=== PATIENT | female | born 1945 | race Caucasian/White ===

== ENCOUNTER 2016-12-30 06:34 | Inpatient (IN) | payer MEDICARE, OTHER ==
[~2016-12-30] VITALS: Ht 162.6 cm; Wt 53.1 kg
[2016-12-30] VITALS (17 sets, daily range): BP systolic 120–161; BP diastolic 68–98; BMI 18.0
[~2016-12-30 06:34] MED LIST: BAYER CHEWABLE81 MG PO; BENADRYL25 MG PO; FISH OIL 1,0001 CA1 PO; FISH OIL 500 MG1 CAP PO; LISINOPRIL2.5 MG; LOPRESSOR25 MG PO; NICODERM C1 PATCH .1 TD
[2016-12-30 06:57] LABS: BASOPHILS 0.2 % (0.0-2.0); EOSINOPHILS 1.6 % (0-7); HEMATOCRIT 40.3 % (36.0-48.0); HEMOGLOBIN 13.5 g/dL (12-16); IMMATURE GRANULOCYTES 0.3 % (0-5); LYMPHOCYTES 24.9 % (15-50); MCH 30.9 pg (26.0-34.0); MCHC 33.5 g/dL (31.0-37.0); MCV 92.2 fL (80.0-100.0); MEAN PLATELET VOLUME 10.1 fL (7.4-10.4); MONOCYTES 2.9 % (2-11); NEUTROPHILS 70.1 % (40-80); PLATELET COUNT 206 10x3/uL (130-400); RBC 4.37 10x6/uL (4.00-5.40); WBC 17.1 10x3/uL (4.8-10.8)
[2016-12-30 07:19] LABS: ALBUMIN 3.8 g/dL (3.4-5.0); ANION GAP 16.9 mmol/L (8-16); BILIRUBIN - TOTAL 0.32 mg/dL (0.2-1.3); CARBON DIOXIDE 22.1 mmol/L (21.0-32.0); CREATININE - SERUM 2.2 mg/dL (0.6-1.3); PROTEIN - SERUM 7.6 g/dL (6.4-8.2)
[2016-12-30 07:35] LABS: TROPONIN-I 0.675 ng/mL (0.000-0.060)
[2016-12-30 07:49] LABS: APPEARANCE CLEAR (CLEAR); BILIRUBIN NEGATIVE (NEGATIVE); COLOR YELLOW (YELLOW); GLUCOSE NEGATIVE (NEGATIVE); KETONE NEGATIVE (NEGATIVE); LEUKOCYTE ESTERASE NEGATIVE (NEGATIVE); NITRITE NEGATIVE (NEGATIVE); PROTEIN NEGATIVE (NEGATIVE); UROBILINOGEN NORMAL (NORMAL)
[2016-12-30 07:51] LABS: APTT 32.7 SECONDS (22.8-39.4); INR 1.01 (0.85-1.17); PROTIME 13.1 SECONDS (11.6-15.0)
[2016-12-30 07:52] LABS: D-DIMER-QUANTITATIVE 1.82 ug/mLFEU (0.20-0.54)
[2016-12-30 08:05] LABS: CKMB 1.9 U/L (0.0-3.6); LIPASE 151 U/L (73-393); PRO BNP 19036 pg/mL (0-125)
[2016-12-30 08:07] LABS: AMYLASE - SERUM 343 U/L (25-115)
--- NOTE | 2016-12-30 10:33 | NUR ---
Is the patient Alert and Oriented? No 0 * How many steps to enter\exit or inside your home? 5-7 0 * PCP DR. CISNEROS 0 * Pharmacy [facility] * Preadmission Environment Home with Family 0 * ADLs Independent 0 * Equipment Bedside Commode Cane Rolling Walker Wheelchair 0 * List name and contact numbers for known caregivers / representatives who currently or will assist patient after discharge: DAUGHTER: FELIX [phone] DAUGHTER: LAUREN [phone] * Community resources currently utilized None 0 * Additional services required to return to the preadmission environment? No 0 * Can the patient safely return to the preadmission environment? Yes 0 * Has this patient been hospitalized within the prior 30 days at any hospital? No PATIENT IS ON THE VENT AND UNABLE TO ANSWER QUESTIONS. I SPOKE WITH HER DAUGHTER, FELIX. SHE STATES HER MOTHER LIVES AT HOME WITH HER. SHE STATES SHE WAS INDEPENDENT IN HER ADL'S. FELIX STATES HER MOTHER'S PCP IS DR. CISNEROS. SHE GETS HER MEDS FROM [facility] AT [facility]. SHE HAS A WALKER, CANE, W/C AND BSC. HER DAUGHTER STATES PATIENT HAD HOME HEALTH SEVEN YRS AGO, BUT THEY DO NOT RECALL THE NAME OF THE AGENCY. THERE ARE 5-7 STEPS WITH A RAIL TO ENTER HER HOME. DISCHARGE NEEDS ARE UNDETERMINED AT THIS TIME.
[2016-12-30 12:21] LABS: TROPONIN-I 0.752 ng/mL (0.000-0.060)
--- NOTE | 2016-12-30 12:57 | NUR ---
0900 PT ARRIVED ON UNIT. INTUBATED AND ON VENTILATOR, SETTINGS IN ASSESSMENT. PT MOVING AROUND AND WITHDRAWING TO PAIN AT THIS TIME. SEDATION VACATION PERFORMED AND BP INCREASED. WILL TAPER SEDATION NEEDED. NORMAL SINUS ON MONITOR AT THIS TIME. RESTRAINTS SECURED AND DOCUMENTED IN FLOWSHEET. FAMILY AT BEDSIDE.
--- NOTE | 2016-12-30 13:01 | NUR ---
1100 PROPOFOL INCREASED AND BP IS NOW STABLE. PT IS NO LONGER MOVING IN BED. WHEN MOVEMENT IS NOTED IT APPEARS TO BE PURPOSEFUL. WILL CONTINUE TO MONITOR AND COMPLETE MED REC WHEN FAMILY COMES AT VISITATION.
--- NOTE | 2016-12-30 13:03 | NUR ---
1300 PT REAMINS STABLE AT THIS TIME WITH NO CHANGES FROM PREVIOUS ASSESSMENT. WILL CONTINUE TO MONITOR. VITAL SIGNS STABLE
[2016-12-30] MEDS ORDERED: ROCALTROL0.5 MCG PO (15:22)
[2016-12-30] MEDS ORDERED: NORVASC5 MG PO (15:22)
[2016-12-30] MEDS ORDERED: METOPROLOL TART50 MG PO (15:23)
[2016-12-30] MEDS ORDERED: ZOCOR20 MG PO (15:24)
--- NOTE | 2016-12-30 15:37 | NUR ---
1500 FAMILY AT BEDSIDE AND UPDATE GIVEN ON PT STATUS. MED REC COMPLETED. PT FAMILY VERBALIZED UNDERSTANDING. PT REPOSITIONED IN BED. VITAL SIGNS STABLE.
--- NOTE | 2016-12-30 18:06 | NUR ---
1700 PT STATUS REMAINS UNCHANGED AT THIS TIME. ORAL CARE PERFORMED AND REPOSITIONED IN BED. WILL CONTINE TO MONITOR
--- NOTE | 2016-12-30 19:00 | NUR ---
REPORT REC'D, PATIENT CARE ASSUMED. ASSESSMENT COMPLETED. SEE FLOW SHEETS FOR ALL FINDINGS. PT SEDATED ON VENT, AROUSES WITH PAIN. SR ON CM WITH HR TO 98. LUNG SOUNDS DIMINISHED TO BILAT LL. OGT TO LIWS IN PLACE. PLACEMENT VERIFIED BY AIR BOLUS WITHOUT DIFFICULTY. LEFT AC PIV INTACT, CLEAN AND DRY INFUSING NS AT 75ML/HR. LUCERO INTACT TO GRAVITY. PPP. SCD REMOVED FOR SKIN INTEGRITY.HOB UP REPOSITIONED FOR COMFORT. SIDE RAILS UP. WILL CONT TO MONITOR.
--- NOTE | 2016-12-30 21:00 | NUR ---
FAMILY AT BEDSIDE VISITING. UPDATED AND QUESTIONS ANSWERED.
--- NOTE | 2016-12-30 22:45 | NUR ---
KASSY BUCHANAN CALLED REGARDING PT'S CONDITION AND 30CC IN 4HR OUTPUT NOTED. ORDER RECEIVED.
--- NOTE | 2016-12-30 23:00 | NUR ---
DR ZEE CALLED WITH CONCERNED OF PT'S OUTPUT. ORDER REC'D FOR 40MG LASIX IV.
[2016-12-31] VITALS (26 sets, daily range): BP systolic 105–154; BP diastolic 64–95; Ht 162.6 cm; Wt 53.1 kg
--- NOTE | 2016-12-31 | NUR ---
REMOVED PT'S 1 YELLOW ANKLET, 3 YELLOW RINGS AND 1 YELLOW EARRING FROM RIGHT EAR. PUT ON BAG IN PT'S CASSETTE. WILL GIVE TO DAUGHTER IN AM.
--- NOTE | 2016-12-31 00:50 | NUR ---
BLADER SCAN DONE. 9ML NOTED. WILL CALL DR ZEE TO NOTIFIED.
--- NOTE | 2016-12-31 01:00 | NUR ---
DR ZEE CALLED FOR PT'S CONDITION AND REGARDING OUTPUT, NO ORDER REC'D AT THIS TIME. CONT TO MONITOR OP TILL MORNING.
--- NOTE | 2016-12-31 03:00 | NUR ---
REASSESSMENT COMPLETED PER FLOW SHEETS. PT SEDATED ON VENT AROUSES WITH STIMULATION, NO ACUTE CHANGES FROM PREVIOUSE. VSS. CONT TO MONITOR.
--- NOTE | 2016-12-31 04:00 | NUR ---
REPOSITIONED FOR COMFORT. MOUTH CARE DONE PER VAP. VSS.
[2016-12-31 05:14] LABS: BASOPHILS 0.1 % (0.0-2.0); EOSINOPHILS 0 % (0-7); HEMATOCRIT 35.6 % (36.0-48.0); HEMOGLOBIN 12.1 g/dL (12-16); IMMATURE GRANULOCYTES 0.3 % (0-5); LYMPHOCYTES 4.9 % (15-50); MCH 30.9 pg (26.0-34.0); MEAN PLATELET VOLUME 10.6 fL (7.4-10.4); MONOCYTES 4.7 % (2-11); PLATELET COUNT 173 10x3/uL (130-400); RBC 3.91 10x6/uL (4.00-5.40); RDW 13.2 % (11.5-14.5); WBC 14.4 10x3/uL (4.8-10.8)
--- NOTE | 2016-12-31 05:20 | NUR ---
PT'S SISTER QIAN FROM [place] CALLED VIA PHONE. UPDATED AND QUESTIONS ANSWERED.
[2016-12-31 05:40] LABS: ALBUMIN 3.2 g/dL (3.4-5.0); BILIRUBIN - TOTAL 0.37 mg/dL (0.2-1.3); CALCIUM 7.6 mg/dL (8.5-10.1); MAGNESIUM - SERUM 1.5 mg/dL (1.8-2.4); PHOSPHOROUS 4.4 mg/dL (2.5-4.9); POTASSIUM - SERUM 4.7 mmol/L (3.5-5.1); PROTEIN - SERUM 6.5 g/dL (6.4-8.2); THYROID STIMULATING HORMONE 1.42 uIU/mL (0.36-3.74)
[2016-12-31 05:45] LABS: ANION GAP 21.2 mmol/L (8-16); CARBON DIOXIDE 15.5 mmol/L (21.0-32.0); CREATININE - SERUM 3.8 mg/dL (0.6-1.3); TROPONIN-I 0.875 ng/mL (0.000-0.060)
--- NOTE | 2016-12-31 07:00 | NUR ---
REPORT RECEIVED, PATIENT IN SEMIFOWLERS POSITION WITH EYES CLOSED. VENT IN PLACE. ASSESSMENT DONE AT THIS TIME. NO VISUAL CUES OF DISTRESS NOTED.
--- NOTE | 2016-12-31 08:22 | NUR ---
SPOKE WITH DR DAUGHERTY AND HE STATED THAT THE WAS TOLD ABOUT THE CONSULT ON THIS PATIENT EVEN THOUGH IN REPORT I WAS TOLD HE HAD NOT BEEN NOTIFIED.
--- NOTE | 2016-12-31 09:20 | NUR ---
PATIENT HAD SOME JEWERLY THAT WAS REMOVED FROM HER ON PM SHIFT (ONE GOLD TONE WITH CLEAR STONE EARRING. THREE GOLD TONE RINGS. ONE GOLD TONE ROPE ANKLET). THESE ITEMS WERE GIVEN TO BRUCE, PATIENTS DAUGHTER AND CAREGIVER. SHE PLACED THEM IN HER POCKET AND LEFT WITH THEM AFTER VISITING HOURS.
--- NOTE | 2016-12-31 10:01 | NUR ---
DOBUTAMINE RESTARTED SECONDARY TO HR DROPPING BACK INTO THE 40'S.
[2016-12-31 11:05] LABS: UDS - AMPHET NEGATIVE QUAL (NEGATIVE); UDS - BARB NEGATIVE QUAL (NEGATIVE); UDS - BENZO POSITIVE QUAL (NEGATIVE); UDS - COCAINE NEGATIVE QUAL (NEGATIVE); UDS - METH NEGATIVE QUAL (NEGATIVE); UDS - OPIATE NEGATIVE QUAL (NEGATIVE); UDS - PCP NEGATIVE QUAL (NEGATIVE); UDS - THC NEGATIVE QUAL (NEGATIVE)
--- NOTE | 2016-12-31 12:19 | NUR ---
VASCULAR ACCESS NURSE NOT HERE TODAY TO PLACE A PICC LINE, ORDER RECEIVED FOR CENTRAL LINE. DR CHUN ON FOR SURGERY AND PAGED.
--- NOTE | 2016-12-31 12:30 | NUR ---
SPOKE WITH DR CHUN WHO STATED THAT HE WOULD BE HERE IN 10MINUTES TO DO THE CENTRAL LINE. SPOKE WITH DAUGHTER, BRUCE, AND VERBAL CONSENT WAS OBTAINED AND WITNESSED BY JANEY NIÑO. DR ZEE HERE AND SPOKE WITH THE DAUGHTER OVER THE PHONE AT THIS TIME. SHE STATED THAT SHE WOULD BE UP AT THE 1500 VISITING HOUR.
--- NOTE | 2016-12-31 12:59 | NUR ---
ASSISTED DR CHUN WITH PLACEMENT OF LEFT TRIPLE LUMEN CVL. X-RAY HERE NOW TO DO THE STAT CHEST X-RAY.
[2016-12-31 14:16] LABS: PROTEIN - URINE 24.3 mg/dL (0.0-11.9)
--- NOTE | 2016-12-31 15:23 | NUR ---
PATIENTS BROTHER, DAUGHERS X2 AND FRIEND OF THE FAMILY HERE. ALL QUESTIONS ANSWERED AND UPDATES GIVEN. FAMILY STATED THEY APPRECIATED ALL WE ARE DOING FOR HER. THEY WILL RETURN AT 1800.
--- NOTE | 2016-12-31 16:18 | NUR ---
NEPRO @ 20 STARTED PER ORDERS BY DAVID ALLEN RN.
--- NOTE | 2016-12-31 19:40 | NUR ---
REC'D TO CARE, ASSESSMENT PER FLOWSHEET. PT ON VENT VIA OETT - SEE FLOWSHEET. NO SIGN OF DISTRESS. IVF INFUSING TO L DLSC, BLOODY DRAINAGE NOTED - STERILE DSG CHANGE DONE. PT REPOSITIONED UP IN BED TO R SIDE. ALARMS ON.
--- NOTE | 2016-12-31 21:20 | NUR ---
NO VISITORS. SEDATION VACATION STARTED.
--- NOTE | 2016-12-31 22:00 | NUR ---
PT COUGHING AGAINST VENT, PULLING AGAINST RESTRAINTS. RR 25. PT WILL NOT FOLLOW COMMANDS BUT MOVES ALL EXTR. RESUMED DIPRIVAN GTT AT 50 MCG/KG/MIN.
--- NOTE | 2016-12-31 22:30 | NUR ---
REASSESSMENT PER FLOWSHEET, RESTING QUIETLY, NO SIGN OF DISTRESS.
--- NOTE | 2016-12-31 23:05 | NUR ---
CM - UCAF RATE 160-180. DR CHENEY.
--- NOTE | 2016-12-31 23:16 | NUR ---
DR. MCGHEE NOTIFIED OF [facility] - NEW ORDER REC'D.
--- NOTE | 2016-12-31 23:23 | NUR ---
CARDIZEM BOLUS GIVEN.
--- NOTE | 2016-12-31 23:27 | NUR ---
REASSESSMENT PER FLOWSHEET. CM - UCAF RATE 130-150S. NO SIGN OF DISTRESS. CONT CLOSE MONITORING, WILL INITIATE CARDIZEM GTT PER MD ORDER IF PT DOES NOT CONVERT TO NSR.
--- NOTE | 2016-12-31 23:55 | NUR ---
INITIATED CARDIZEM GTT PER MD ORDER AT 10MG/HR
[2017-01-01] VITALS (24 sets, daily range): BP systolic 95–139; BP diastolic 63–97
--- NOTE | 2017-01-01 02:20 | NUR ---
CONVERTED TO SR. HR 90S.
--- NOTE | 2017-01-01 02:37 | CN ---
PATIENT NAME:JOHN AGUDELO MEDICAL RECORD: [id number] : 41 LOCATION:[facility] ADMIT DATE: 12/30/16 ACCOUNT: [id number] CONSULTING PHYSICIAN: BRAXTON CHUN MD REFERRING PHYSICIAN: GIOVANNA SAUL MD DATE OF CONSULTATION: 12/31/2016 SURGEON: Braxton Chun MD. PREOPERATIVE DIAGNOSES: 1. Respiratory failure. 2. Congestive heart failure. 3. Acute kidney failure. 4. Peripheral venous access insufficiency. POSTOPERATIVE DIAGNOSES: 1. Respiratory failure. 2. Congestive heart failure. 3. Acute kidney failure. 4. Peripheral venous access insufficiency. PROCEDURE PERFORMED: Insertion of left subclavian central venous triple lumen catheter. ANESTHESIA: Local. COMPLICATIONS: None. SPECIMENS: None. ESTIMATED BLOOD LOSS: 5 cc. PROCEDURE IN DETAIL: After consent was obtained, the patient was placed in the supine position on her ICU bed. The bed was placed in Trendelenburg position. A timeout was taken to confirm the correct patient and procedure. The left chest wall and neck were prepped and draped in the typical sterile fashion. A 5 cc of local anesthetic were injected in the left chest wall. Left subclavian vein was cannulated on the first pass. A guidewire was placed. The needle was removed. A stab incision was made with 11-blade scalpel. The dilator was passed over the wire in a standard Seldinger fashion. The catheter was then advanced over the wire in a standard Seldinger fashion. A Biopatch was placed. It was secured to skin using 2-0 silk suture and a sterile Tegaderm dressing. All 3 ports were aspirated and flushed. At the end of procedure, all needle and instrument counts were correct. No complications occurred. Immediate postoperative chest x-ray was performed. TRANSINT:[id number] Voice Confirmation ID: [id number] DOCUMENT ID: [id number] CONSULT REPORT [id number] JOHN AGUDELO BRAXTON CHUN MD at 0237 CC: [id number] DICTATION DATE: 12/31/16 1307 CUTTER V GROOVE: 12/31/16 2159 [place] [address]
--- NOTE | 2017-01-01 02:37 | CN ---
PATIENT NAME:JOHN AGUDELO MEDICAL RECORD: [id number] : 41 LOCATION:[facility].2310 ADMIT DATE: 12/30/16 ACCOUNT: [id number] CONSULTING PHYSICIAN: BRAXTON CHUN MD REFERRING PHYSICIAN: GIOVANNA SAUL MD DATE OF CONSULTATION: 12/31/2016 HISTORY OF PRESENT ILLNESS: This is a 71-year-old female, who was admitted to the ICU for heart palpitations and respiratory failure. She was intubated and transferred to the ICU. All history was obtained through chart review and discussion with the nurse. The patient is critically ill without adequate IV access, on the ventilator. The patient was delivered by EMS earlier today. PAST MEDICAL HISTORY: Includes arthralgia, hypertension, hyperlipidemia, neuropathy, stage IV renal disease, as well as history of stroke, history of TIA, peripheral vascular disease, coronary artery disease, carotid stenosis. PAST SURGICAL HISTORY: Hysterectomy, removal of the right ____, left wrist. She has bilateral iliac stents. ALLERGIES: LISINOPRIL. MEDICATIONS: Included aspirin, fish oil, Nicoderm, Benadryl, metoprolol. SOCIAL HISTORY: Per report, no history of alcohol, smoking unknown. FAMILY HISTORY: Unobtainable. REVIEW OF SYSTEMS: A 12-point review of systems unobtainable secondary to the patient's medical condition. She is currently intubated and sedated. PHYSICAL EXAMINATION: VITAL SIGNS: Temperature 99, heart rate 84, respiratory rate 20, blood pressure 130/44, satting 98% on 40% on the vent. GENERAL: Cachectic elderly female in severe distress. EYES: Pupils are equal, round and reactive. EARS, NOSE AND THROAT: She has normal dentition. CARDIOVASCULAR: She has normal sinus rhythm. LUNGS: Decreased breath sounds bilaterally. She has got coarse rales bilaterally. ABDOMEN: Soft, nontender, and nondistended. SKIN: Warm and dry with normal turgor. EXTREMITIES: She has got some mild lower extremity edema. NEUROLOGIC: She has a GCS of 70. LABORATORY DATA: Reviewed. Please see electronic medical record for full list of labs. Chest x-ray reviewed, which shows interstitial pulmonary edema. IMPRESSION: A 71-year-old female with acute respiratory failure and peripheral IV access insufficiency, [id number] renal failure, congestive heart failure exacerbation. Pulmonary critical care is in consult and is currently managing the patient's ventilator. The patient is on IV diuresis, IV antibiotics and IV steroids as well as IV sedation. Continue critical care current management per primary care and pulmonary critical care. Consent obtained for insertion of a central venous line. CONSULT REPORT [id number] JOHN AGUDELO TRANSPATRICIA:[id number] Voice Confirmation ID: [id number] DOCUMENT ID: [id number] BRAXTON CHUN MD at 0237 CC: [id number] DICTATION DATE: 12/31/16 1307 ELECTRIC SWITCH TESTER: 12/31/16 2158 ADM IN [place] [id number] [place] [id number]
--- NOTE | 2017-01-01 03:37 | NUR ---
PCXR DONE. REASSESSMENT PER FLOWSHEET. CM - SR. STILL SMALL AMT BLEEDING FROM CVL. PRESSURE HELD AND DSG CHANGED.
[2017-01-01 05:01] LABS: BASOPHILS 0 % (0.0-2.0); EOSINOPHILS 0 % (0-7); HEMATOCRIT 33.5 % (36.0-48.0); HEMOGLOBIN 11.4 g/dL (12-16); IMMATURE GRANULOCYTES 0.3 % (0-5); LYMPHOCYTES 5.4 % (15-50); MCH 30.1 pg (26.0-34.0); MEAN PLATELET VOLUME 10.5 fL (7.4-10.4); MONOCYTES 4.5 % (2-11); NEUTROPHILS 89.8 % (40-80); PLATELET COUNT 157 10x3/uL (130-400); RBC 3.79 10x6/uL (4.00-5.40); RDW 13.1 % (11.5-14.5); WBC 14.3 10x3/uL (4.8-10.8)
[2017-01-01 05:03] LABS: MCV 88.4 fL (80.0-100.0)
[2017-01-01 05:28] LABS: ALBUMIN 2.7 g/dL (3.4-5.0); BILIRUBIN - DIRECT 0.11 mg/dL (0.00-0.30); BILIRUBIN - INDIRECT 0.38 mg/dL (0.00-1.00); BILIRUBIN - TOTAL 0.49 mg/dL (0.2-1.3); CREATININE - SERUM 4.5 mg/dL (0.6-1.3); MAGNESIUM - SERUM 1.4 mg/dL (1.8-2.4); PHOSPHOROUS 4.7 mg/dL (2.5-4.9); PROTEIN - SERUM 6.2 g/dL (6.4-8.2)
[2017-01-01 05:36] LABS: ANION GAP 16.1 mmol/L (8-16); CALCIUM 6.8 mg/dL (8.5-10.1); CARBON DIOXIDE 24.6 mmol/L (21.0-32.0); POTASSIUM - SERUM 3.7 mmol/L (3.5-5.1)
--- NOTE | 2017-01-01 05:52 | NUR ---
COMPLETE BATH AND LINEN CHANGE DONE. RAOUL-CARE AND LOTION TO DRY SKIN. CVL STILL WITH SMALL AMT BLEEDING - SANDBAG APPLIED.
--- NOTE | 2017-01-01 11:00 | NUR ---
NO CHANGE NOTED
--- NOTE | 2017-01-01 15:00 | NUR ---
NO CHANGE NOTED
--- NOTE | 2017-01-01 19:20 | NUR ---
SHIFT ASSESSMENT COMPLETED. SEE ASSESSMENT FLOWSHEET. ORAL CARE COMPLETED. <5ML OF GASTRIC RESIDUAL NOTED FROM OG TUBE. OG WITH NEPRO INFUSING @ 35ML/HR. LEFT SC TRIPLE LUMEN CVL WITH NS @ 5ML/HR +IVPB; CARDIZEM @ 10MG/HR; 1/2NS W/ 75MEQ BICARB @ 50ML/HR. DIPRIVAN TO LEFT HAND 18G PIV @ 60, DECREASED TO 55MCG/KG/MIN. OPENS EYES SLIGHTLY TO STIMULATION. WITHDRAWS FROM PAIN. LEFT ARM SWELLING NOTED. ELEVATED ONTO PILLOWS. LUCERO TO GRAVITY DRAINING CLEAR, SLIGHTLY GREENISH COLORED URINE. SCD'S ON TO LE'S BILATERALLY. HEELS ELEVATED ONTO PILLOWS. WILL MONITOR.
--- NOTE | 2017-01-01 20:37 | NUR ---
2100 MEDS GIVEN. FSBS ASSESSED. SUGAR-157. WILL MONITOR.
--- NOTE | 2017-01-01 23:54 | NUR ---
SBP IN THE 90'S. HR IN THE MID 60'S-SINUS RHYTHM. DECREASED CARDIZEM TO 5MG/HR. WILL MONITOR.
[2017-01-02] VITALS (35 sets, daily range): BP systolic 99–198; BP diastolic 64–102
--- NOTE | 2017-01-02 00:45 | NUR ---
CARDIZEM TURNED OFF DUE TO HEART RATE MID 50'S. WILL MONITOR.
--- NOTE | 2017-01-02 01:10 | NUR ---
R.T. AT BEDSIDE DOING TREATMENT AND ORAL CARE. LEFT SC CVL OOZING SOME BLOODYD RAINAGE FROM DRESSING. SANDBAG PLACED ONTO CVL. WILL MONITOR.
--- NOTE | 2017-01-02 03:05 | NUR ---
REASSESSMENT COMPLETED. SEE ASSESSMENT FLOWSHEET. R.T. AT BEDSIDE DOING ABG. NO ACUTE CHANGES IN ASSESSMENT. SMALL OOZING OF SANGUINOUS DRAINAGE FROM LEFT SC CVL. SANDBAG IN PLACE. WILL GIVE BED BATH AFTER XRAY ETC.
--- NOTE | 2017-01-02 04:30 | NUR ---
LEFT SC CVL DRSG REMOVED AND OLD BLOODY DRAINAGE NOTED. STERILE DRSG CHANGED AND 4X4'S APPLIED TO SITE WITH 1/2 PACK 4X4'S AT THE SITE AFTER BIOPATCH. COMPLETE BED BATH AND LINEN CHANGE DONE. SMALL BROWN SEMI-SOLID BM REMOVED FROM PERINEAL AREA. LEFT AC PIV REMOVED. COUGHS AND MOVES ARMS UP TOWARDS OETT WHEN UNRESTRAINTED. ORAL CARE COMPLETED. TURNED AND REPOSITIONED TO RT SIDE. MULTIPLE PILLOWS USED TO ELEVATE HEELS AND ARMS OFF BED DUE TO SWELLING TO UE'S. PASSIVE ROM DONE. LE'S FLACCID WHEN RANGE OF MOTION COMPLETED. DIPRIVAN AT 40MCG/KG/MIN NOW. WILL CONTINUE TO MONITOR.
[2017-01-02 04:34] LABS: BASOPHILS 0 % (0.0-2.0); EOSINOPHILS 0 % (0-7); HEMATOCRIT 30.9 % (36.0-48.0); HEMOGLOBIN 10.6 g/dL (12-16); IMMATURE GRANULOCYTES 0.2 % (0-5); LYMPHOCYTES 6.7 % (15-50); MCH 30.1 pg (26.0-34.0); MCHC 34.3 g/dL (31.0-37.0); MCV 87.8 fL (80.0-100.0); MEAN PLATELET VOLUME 11.4 fL (7.4-10.4); MONOCYTES 2.9 % (2-11); NEUTROPHILS 90.2 % (40-80); PLATELET COUNT 150 10x3/uL (130-400); RBC 3.52 10x6/uL (4.00-5.40); RDW 13.3 % (11.5-14.5); WBC 13.2 10x3/uL (4.8-10.8)
[2017-01-02 04:57] LABS: INR 0.94 (0.85-1.17); PROTIME 12.4 SECONDS (11.6-15.0)
[2017-01-02 04:58] LABS: ALBUMIN 2.5 g/dL (3.4-5.0); ANION GAP 16.3 mmol/L (8-16); BILIRUBIN - TOTAL 0.4 mg/dL (0.2-1.3); CALCIUM 7.3 mg/dL (8.5-10.1); CARBON DIOXIDE 27.9 mmol/L (21.0-32.0); CREATININE - SERUM 4.5 mg/dL (0.6-1.3); MAGNESIUM - SERUM 1.7 mg/dL (1.8-2.4); PHOSPHOROUS 6.6 mg/dL (2.5-4.9); POTASSIUM - SERUM 4.2 mmol/L (3.5-5.1); PROTEIN - SERUM 5.7 g/dL (6.4-8.2)
--- NOTE | 2017-01-02 06:05 | NUR ---
MORE PAC'S AND IRREGULAR BEATS NOTED ON THE TUBE BENDER. CARDIZEM GTT TURNED BACK ON @ 5MG/HR.
--- NOTE | 2017-01-02 23:30 | NUR ---
REASSESSMENT PER FLOWSHEET, NO ACUTE CHANGES. VSS.
[2017-01-03] VITALS (27 sets, daily range): BP systolic 90–150; BP diastolic 52–98
--- NOTE | 2017-01-03 00:32 | NUR ---
REPOSITIONED UP IN BED.. ORAL CARE DONE. ROM DONE. CM - SR WITH PACS..
--- NOTE | 2017-01-03 02:00 | NUR ---
CM - SB HR 49 - CARDIZEM GTT TO 5MG/HR. WILL CONT CLOSE MONITORING.
--- NOTE | 2017-01-03 02:59 | NUR ---
REASSESSMENT PER FLOWSHEET, NO ACUTE CHANGES. NO SIGN OF DISTRESS. CM - NS RATE 57 WITH [facility] PAC. ALARMS ON .
[2017-01-03 04:34] LABS: BASOPHILS 0 % (0.0-2.0); EOSINOPHILS 0 % (0-7); HEMATOCRIT 30.4 % (36.0-48.0); HEMOGLOBIN 10.5 g/dL (12-16); IMMATURE GRANULOCYTES 0.4 % (0-5); LYMPHOCYTES 5.1 % (15-50); MCH 30.2 pg (26.0-34.0); MCHC 34.5 g/dL (31.0-37.0); MCV 87.4 fL (80.0-100.0); MONOCYTES 3.1 % (2-11); NEUTROPHILS 91.4 % (40-80); PLATELET COUNT 168 10x3/uL (130-400); RBC 3.48 10x6/uL (4.00-5.40); RDW 13.2 % (11.5-14.5); WBC 11.6 10x3/uL (4.8-10.8)
[2017-01-03 05:02] LABS: ALBUMIN 2.5 g/dL (3.4-5.0); ANION GAP 16.8 mmol/L (8-16); BILIRUBIN - TOTAL 0.3 mg/dL (0.2-1.3); CALCIUM 7.6 mg/dL (8.5-10.1); CARBON DIOXIDE 26.5 mmol/L (21.0-32.0); CREATININE - SERUM 4.8 mg/dL (0.6-1.3); MAGNESIUM - SERUM 1.9 mg/dL (1.8-2.4); POTASSIUM - SERUM 4.3 mmol/L (3.5-5.1); PROTEIN - SERUM 5.8 g/dL (6.4-8.2)
[2017-01-03 05:03] LABS: PHOSPHOROUS 8.4 mg/dL (2.5-4.9)
[2017-01-03 05:04] LABS: TROPONIN-I 1.871 ng/mL (0.000-0.060)
--- NOTE | 2017-01-03 07:00 | NUR ---
REPORT RECEIVED. PATIENT IN RIGHT POSITION, WAS CLEANED AND MOVED TO HER BACK. ASSESSMENT COMPLETED.
--- NOTE | 2017-01-03 09:32 | NUR ---
NUTRITION MONITORING & EVAL CHART REVIEWED, PT REMAINS ON VENT. NEPRO @ 35 CC/HR. DIPRIVAN @ 14 CC/HR. PROVIDING ~ 1882 KCAL, 68 GM PROTEIN PER DAY. RECOMMEND CHANGE TUBE FEEDS TO SUPLENA @ 30 CC/HR. RD FOLLOWING
--- NOTE | 2017-01-03 09:36 | NUR ---
AFTER SPEAK WITH CARLOS FILLING OPERATOR, SPOKE WITH DR ALEJANDRO. PATIENT ON HIGH PROTEIN FEEDING, THIS WILL CHANGE TO A LOWER PROTEIN PER NEW ORDERS. GI WILL BE CONSULTED SECONDARY TO ELEVATED AMYLASE.
--- NOTE | 2017-01-03 09:40 | NUR ---
DR ALEJANDRO AT BEDSIDE. HE REQUESTED THAT SEDATION BE TURNED OFF. HE CHANGED THE SIMV TO 8, TV TO 600 FROM 500, THE REST OF THE SETTINGS REMAINED THE SAME.
--- NOTE | 2017-01-03 09:53 | NUR ---
PATIENT IS AWAKE, SHE IS ABLE TO FOLLOW COMMANDS. SHE IS SQUEEZING HAND TO YES WITH QUESTIONS. THE WEANING PROCESS WAS EXPLAINED TO HER. WILL CONTINUE TO REEXPLAIN.
--- NOTE | 2017-01-03 09:59 | NUR ---
ATTEMPTED TO CALL CONSULT TO DR VO PER ORDERS. PER HIS OFFICE, THE PATIENT IS NOT AN EXISTING PATIENT AND DR MONGE IS THE ONCALL GI. WILL GET ORDER CHANGED.
--- NOTE | 2017-01-03 10:05 | NUR ---
CONSULT CALLED TO DR HUBER OFFICE.
--- NOTE | 2017-01-03 10:45 | NUR ---
PATIENTS VITALS ALARMING. HER HEART RATE WAS RANGING FROM 120'S TO 140'S. AT FIRST RHYTHM REMAINED SINUS RYTHUM, BUT THEN PROGRESSED INTO UNCONTROLLED A.FIB. CARDIZEM DRIP WAS INCREASED TO 10. TALKED WITH THE PATIENT WHO IS ALSO TRYING TO USE HER TONGUE TO MOVE THE ETT. IT WAS EXPLAINED THAT WE ARE WORKING ON GETTING THE TUBE OUT THAT SHE WOULD NEED TO CALM DOWN AND CONCENTRATE ON HER BREATHING AND TRY TO IGNORE THE TUBE. WILL CONTINUE TO WORK WITH THE PATIENT AND MONITOR HER.
--- NOTE | 2017-01-03 11:08 | NUR ---
PATIENT HAS CONVERTED BACK TO SINUS RHYTHM, SINUS TACH. WILL CONTINUE TO MONITOR.
--- NOTE | 2017-01-03 11:40 | NUR ---
SPOKE WITH PATIENTS DAUGHTER TO LET HER KNOW THAT THE PATIENT IS AWAKE AT THIS TIME AND THAT WE ARE WORKING TOWARDS WEANING HER AND GETTING HER OFF THE VENT. BRUCE WAS THANKFUL FOR THE INFORMATION AND STATED SHE WILL BE HERE AT 1500 VISITING HOUR WITH REST OF THE FAMILY.
--- NOTE | 2017-01-03 11:48 | NUR ---
PAGED DR CHUN TO TELL HIM ABOUT CONSULT, HE IS COVERING FOR DR MENEZES.
--- NOTE | 2017-01-03 12:49 | NUR ---
PATIENT TURNED TO CPAP ON THE VENT, FIO2 INCREASED TO 40% SECONDARY TO SATS HANGING 93-94%
--- NOTE | 2017-01-03 13:06 | NUR ---
PATIENT STARTED GASPING WHILE ON CPAP TRIALS. SHE WAS SWITCHED BACK SIMV AND SEDATIONS WAS RESTARTED AT 35 MCG. THIS IS LESS THAN SHE STARTED THIS AM. WILL KEEP SEDATION LOW POSSIBLE FOR THE PATIENT BUT RELAXED ENOUGH TO NOT FIGHT THE TUBE. WILL TRY CPAP TRIALS TOMORROW.
--- NOTE | 2017-01-03 15:54 | NUR ---
PATIENTS DAUGHTER ARE REFUSING TO SIGN CONSENTS FOR HEMOSPLIT HD CATH TO BE PLACED TODAY. HAVE EXPLAINED THIS TO DR CRUMP, DR CHUN, AND HAVE LEFT A MESSAGE FOR DR DAUGHERTY. WILL WAIT FOR HIM TO CALL BACK AND NOTIFY HIM. THE FAMILY STATED THEY WANTED TO THINK ABOUT THIS OVER NIGHT BECAUSE THE PATIENT HAS ALWAYS SAID THAT SHE DOES NOT WANT DIALYSIS AND THEY WANT TO OBEY HER WISHES, BUT THEN AGAIN THEY ARE A LITTLE SELFISH AND ARE NOT SURE IF THEY SHOULD BE OR NOT. THEY SAID THEY WOULD GIVE AN ANSWER IN THE MORNING.
--- NOTE | 2017-01-03 16:53 | NUR ---
JUST GOT OFF THE PHONE WITH PATIENTS DAUGHTER BRUCE. SHE STATED THAT THE FAMILY HAS TALKED AND THEY HAVE DECIDED TO GO AHEAD WITH THE PLACEMENT OF THE HEMOSPLIT. CONSENT WAS OBTAINED WITH SHIRA العراقي RN WITNESSING OVER THE PHONE. WILL NOTIFY ALL THE DOCTORS.
--- NOTE | 2017-01-03 17:09 | NUR ---
SPOKE WITH DR CHUN, EXPLAINED THAT THE DAUGHTERS HAVE DECIDED TO GO AHEAD WITH THE HEMOSPLIT. HE STATED THAT HE WOULD TAKE THE PATIENT NEXT. WILL LET RESPIRATORY KNOW.
--- NOTE | 2017-01-03 19:01 | NUR ---
ANESTHESIA HERE, PATIENT GETTING READY TO GO TO [facility] OR FOR HEMOSPLIT TO BE PLACED.
--- NOTE | 2017-01-03 20:10 | NUR ---
REC'D TO ROOM 2310 FROM OR. L CVL AND HEMOSPLIT CATHETER NOTED - DSG C/D/I. REMAINS ON MECH VENT VIA OETT - SEE FLOWSHEET. DIPRIVAN GTT - WILL TITRATE PER MD ORDER. CARDIZEM GTT AT 5MG/HR. CM - SR WITH PACS. ICU MONITORS/ALARMS ON. CONT B/L SOFT WRIST RESTRAINTS PER MD ORDER.
--- NOTE | 2017-01-03 21:20 | NUR ---
NO VISITORS. VSS. L CVL AND HEMOSPLIT SITES C/D/I.
--- NOTE | 2017-01-03 21:27 | NUR ---
DR. MONGE IN TO SEE PT. NEW ORDERS REC'D.
--- NOTE | 2017-01-03 23:30 | NUR ---
REASSESSMENT PER FLOWSHEET, NO ACUTE CHANGES. CM - SR WITH UCAF AT TIMES. NO SIGN OF DISTRESS. CONT ORAL CARE AND TURNING PER FLOWSHEET.
[2017-01-04] VITALS (24 sets, daily range): BP systolic 102–146; BP diastolic 64–93
--- NOTE | 2017-01-04 01:00 | NUR ---
CM - SR RATE 60-70S.
[2017-01-04 03:09] LABS: MYCOPLASMA PNEUMO IGG <100 U/mL (0-99)
--- NOTE | 2017-01-04 03:30 | NUR ---
REASSESSMENT PER FLOWSHEET, NO ACUTE CHANGES. CONT TO GO BACK AND FORTH BETWEEN SR AND UCAF - B/P STABLE. PCXR DONE.
--- NOTE | 2017-01-04 03:54 | NUR ---
RESIDUAL TF 410ML. HOLD TF PER MD ORDER.=
[2017-01-04 05:09] LABS: BASOPHILS 0 % (0.0-2.0); EOSINOPHILS 0 % (0-7); HEMATOCRIT 27.5 % (36.0-48.0); HEMOGLOBIN 9.3 g/dL (12-16); IMMATURE GRANULOCYTES 0.4 % (0-5); LYMPHOCYTES 5.7 % (15-50); MCH 29.9 pg (26.0-34.0); MCHC 33.8 g/dL (31.0-37.0); MCV 88.4 fL (80.0-100.0); MEAN PLATELET VOLUME 10.6 fL (7.4-10.4); MONOCYTES 4.7 % (2-11); NEUTROPHILS 89.2 % (40-80); PLATELET COUNT 160 10x3/uL (130-400); RBC 3.11 10x6/uL (4.00-5.40); RDW 13.3 % (11.5-14.5); WBC 10.4 10x3/uL (4.8-10.8)
[2017-01-04 05:45] LABS: ALBUMIN 2.5 g/dL (3.4-5.0); BILIRUBIN - TOTAL 0.47 mg/dL (0.2-1.3); CREATININE - SERUM 5.3 mg/dL (0.6-1.3); MAGNESIUM - SERUM 2.1 mg/dL (1.8-2.4); PHOSPHOROUS 8.7 mg/dL (2.5-4.9); POTASSIUM - SERUM 4.5 mmol/L (3.5-5.1); PROTEIN - SERUM 5.2 g/dL (6.4-8.2)
[2017-01-04 05:56] LABS: CALCIUM 6.9 mg/dL (8.5-10.1)
[2017-01-04 05:59] LABS: ANION GAP 15.8 mmol/L (8-16); CARBON DIOXIDE 27.7 mmol/L (21.0-32.0)
--- NOTE | 2017-01-04 07:00 | NUR ---
REPORT RECEIVED. PATIENT IN SEMIFOWLERS POSITION WITH EYES CLOSED. ASSESSMENT COMPLETED AT THIS TIME. SPOKE WITH DAUGHTER LAUREN ON THE PHONE, UPDATE GIVEN.
--- NOTE | 2017-01-04 08:23 | OP ---
PATIENT NAME: JOHN AGUDELO MEDICAL RECORD: [id number] :41 LOCATION:.[facility] D.2310 ADMISSION DATE:12/30/16 SURGEON: BRAXTON CHUN MD DATE OF OPERATION: 01/03/2017 SURGEON: Braxton Chun MD PREOPERATIVE DIAGNOSES: Acute renal failure, acute respiratory failure. POSTOPERATIVE DIAGNOSES: Acute renal failure, acute respiratory failure. PROCEDURE PERFORMED: 1. Ultrasound-guided left internal jugular HemoSplit catheter. 2. Immediate interpretation of fluoroscopy. ANESTHESIA: General. COMPLICATIONS: None. SPECIMENS: None. Case was clean. ESTIMATED BLOOD LOSS: 20 cc. OPERATIVE COURSE: After consent was obtained, the patient was taken to the operating room and placed in supine position on the table. Next, general anesthesia was continued via endotracheal tube. The left chest and neck were prepped and draped in typical sterile fashion. Local anesthetic was injected, but internal jugular vein was identified with the ultrasound probe and it was cannulated under ultrasound guidance. Once port was aspirated, the guidewire was placed through the needle in standard Seldinger fashion. The needle was removed. The tract was serially dilated over the wire in a standard Seldinger fashion. Skin incision was made with 11-blade scalpel. A second skin incision made over the left chest wall just below the clavicle. The dilator and breakaway sheath were passed over the wire in a standard Seldinger fashion. These were all done with fluoroscopic guidance. Next, the catheter was tunneled from the chest wall incision site to the needle stick site. The dilator and wire were removed. The catheter was advanced through the breakaway sheath to the atriocaval junction under fluoroscopic guidance. The breakaway sheath was removed. Skin incision was closed with a 3-0 Vicryl suture. HemoSplit catheter was secured to the skin using 2-0 nylon suture and sterile Tegaderm dressing. Next, both ports were aspirated. They were then flushed with 5000 units of heparin and 30 cc of saline. A sterile Tegaderm dressings were applied. The patient was transferred back to the ICU, intubated. Immediate post-procedure chest x-ray was performed. At the end of case, all needle and instrument counts were correct. TRANSINT:[id number] Voice Confirmation ID: [id number] DOCUMENT ID: [id number] OPERATIVE REPORT [id number] JOHN AGUDELO,BRAXTON Jenkins MD at 0823 CC: [id number] DICTATION DATE: 01/03/172004 BRICK SETTER OPERATOR: 01/04/17 [address] [facility] [address] [place] [id number]
--- NOTE | 2017-01-04 08:48 | NUR ---
PATIENT ON CPAP AND PER BRITNEY WITH RESPIRATORY, HER GASES ARE GOOD. SEDATION ON 5 MCG. PATIENT AWAKE AND ABLE TO FOLLOW COMMANDS.
--- NOTE | 2017-01-04 09:33 | NUR ---
PATIENT IS COMPLETELY OFF SEDATION. HEART RATE IS VARYING FROM 70'S TO 118. WILL CONTINUE TO MONITOR. AT THIS TIME SHE IS IN SINUS RYTHUM, SINUSTACH.
--- NOTE | 2017-01-04 09:46 | NUR ---
PATIENT EXTUBATED. SHE IS ON 4L N/C AND SATING 96-97%.
--- NOTE | 2017-01-04 09:46 | NUR ---
PATIENTS RESTRAINS OFF.
--- NOTE | 2017-01-04 09:50 | NUR ---
SPOKE WITH BRUCE ON THE PHONE AND LET HER KNOW THAT HER MOTHER HAS BEEN EXTUBATED. ALL QUESTIONS ANSWERED.
--- NOTE | 2017-01-04 10:59 | NUR ---
PATIENTS HEART RATE 128-136 UNCONTROLLED A.FIB. CARDIZEM DRIP INCREASED TO 10 ML/HR. WILL MONITOR.
--- NOTE | 2017-01-04 12:00 | NUR ---
TRIED PATIENT ON LIQUIDS. SHE DOES OK WITH ICE CHIPS, BUT STRUGGLES A BIT WITH LIQUIDS. EXPLAINED WE WOULD CONTINUE WITH THE ICE CHIPS AND TRY LIQUIDS AGAIN IN AN HOUR OR SO.
--- NOTE | 2017-01-04 14:14 | NUR ---
SECONDARY TO HR STAYING 128-150, DR GAMBINO PAGEMerna. ONE TIME ORDERED FOR DIGOXIN IV. WILL ADMINISTER AFTER ON HER EMAR.
--- NOTE | 2017-01-04 15:43 | NUR ---
SPOKE WITH DAUGHTER BRUCE ON THE PHONE. SHE ORIGINALLY STATED THAT SHE WOULD STAY AWAY TODAY AND LET THE PATIENT REST, BUT THE PATIENT IS WANTING TO SEE HER AND BECOMES TEARFUL SHE IS TALKING ABOUT IT. SHE STATED THAT SHE WOULD BE UP HERE FOR THE 1800 VISITATION.
--- NOTE | 2017-01-04 16:58 | NUR ---
FED PATIENT DINNER. SHE ATE AROUND 10% OF THE MEAL. SHE BECOMES SHORT OF BREATH WHILE EATING IF SHE DOES NOT TAKE BRAKES (SATS REAMIN 96-97%) AND HER HEART RATE ELEVATES. THE HIGHEST RATE WAS 163 AND IT LASTED FOR LESS THAN A SECOND AND THEN WENT DOWN INTO THE 120'S. AFTER DINNER SHE WAS REPOSITIONED FOR COMFORT AND SET UP WHERE DIALYSIS COULD BEGIN. HER HEART RATE HAS GONE BACK TO 80'S TO 120'S WITH THE OCCASSIONAL 130. WILL CONTINUE TO MONITOR THIS. SBP HANGING IN THE 100'S TO UPPER 90'S.
--- NOTE | 2017-01-04 17:51 | NUR ---
DOMINIQUE DIETZN FOR DR CRUMP PAGED SECONDARY TO PATIENTS HEART RATE STILL BOUNCING FROM 80'S TO 140'S. WILL SEE IF THEY WANT TO TRY SOMETHING FOR ANXIETY OR GIVE ANY OTHER MEDICATIONS. WILL WAIT FOR RETURN CALL.
--- NOTE | 2017-01-04 18:28 | NUR ---
THE DRAW WAS SLOWED DOWN ON DIALYSIS SECONDARY TO HR REMAINING ELEVATED. THIS TIME IS GOING UP INTO THE 160'S. DIALYSIS NURSE IT TO CONTACT DR PERRIN TO SEE IF HE WANTS HER TO CONTINUE DIALYSIS OR RETURN AND STOP. JESSICA ELENA APN FOR DR CRUMP PAGED AGAIN SECONDARY TO NO RETURN CALL.
--- NOTE | 2017-01-04 18:38 | NUR ---
ANOTHER NURSE HAD PAGED DR PERRIN. SPOKE WITH HIM SECONDARY TO COMMENT MADE BY DIALYSIS NURSE. NEW ORDERS RECEIVED. AT THIS TIME HE WANTS THE DIALYSIS TO REMAIN GOING.
--- NOTE | 2017-01-04 18:50 | NUR ---
SPOKE WITH JESSICA ELENA APN. EXPLAINED THAT I HAD ALREADY SPOKE WITH DR PERRIN, BUT GAVE AN UPDATE ON THE PATIENT. SHE STATED THAT HER RECOMMENDATION WOULD BE TO TALK WITH DR PERRIN AND FOLLOW HIS RECOMMENDATIONS. WILL CALL DR PERRIN BACK IF THERE ARE NO IMPROVEMENTS OR IF THERE IS A NOTED DROP IN THE SBP.
--- NOTE | 2017-01-04 19:15 | NUR ---
REC'D TO CARE, HD IN PROCESS WITH NURSE AT . PT RESTING QUIETLY, REPORTED ANXIETY EARLIER - HAD ATIVAN PER PRN ORDER. CM - UCAF. ALARMS ON.
--- NOTE | 2017-01-04 19:47 | NUR ---
PUBLIC HEALTH POLICY ANALYST PER FLOWSHEET, CONT ON HD, NO SIGN OF DISTRESS. CM - UCAF RATE OF 120-150S. PT DENIES PAIN. IVFS INFUSING TO L TLSC, DSG C/D/I - SEE FLOWSHEET. ALARMS ON
--- NOTE | 2017-01-04 20:50 | NUR ---
PT INCONT OF SMALL LOOSE BROWN BM. COMPLETE RAOUL-CARE, PADS CHANGED AND BARRIER CREAM APPLIED. PT COOPERATIVE, NO SIGN OF DISTRESS.
--- NOTE | 2017-01-04 22:05 | NUR ---
PT RESTING QUIETLY, CM - AFIB RATE OF 100-120S AT THIS TIME. C/L IN REACH.
--- NOTE | 2017-01-04 23:12 | NUR ---
REASSESSMENT PER FLOWSHEET, NO ACUTE CHANGES. PT ANSWERING QUESTIONS APPROP. DENIES PAIN. GOOD COUGH. ALARMS ON AND C/L IN REACH.
[2017-01-05] VITALS (23 sets, daily range): BP systolic 85–131; BP diastolic 53–95
--- NOTE | 2017-01-05 00:37 | NUR ---
PT INCONT OF SMALL LOOSE STOOL. RAOUL-CARE DONE AND PADS CHANGED. PT DENIES NEEDS. C/L IN REACH.
--- NOTE | 2017-01-05 03:12 | NUR ---
STERILE DSG CHANGE TO HEMOSPLIT AND L TLSC, BRUISING NOTED, NO SIGN OF BLEEDING. REASSESSMENT PER FLOWSHEET. PT STILL CONFUSED, ABLE TO REORIENT BRIEFLY. ENCOURAGED ROM WITH HANDS AND FEET. GOOD COUGH. CM - CAF - PERIODS OF SR NOTED. ALARMS ON AND C/L IN REACH.
[2017-01-05 05:06] LABS: BASOPHILS 0 % (0.0-2.0); EOSINOPHILS 0.1 % (0-7); HEMATOCRIT 27.9 % (36.0-48.0); HEMOGLOBIN 9.3 g/dL (12-16); IMMATURE GRANULOCYTES 0.5 % (0-5); LYMPHOCYTES 11.8 % (15-50); MCHC 33.3 g/dL (31.0-37.0); MEAN PLATELET VOLUME 10.5 fL (7.4-10.4); MONOCYTES 10.6 % (2-11); PLATELET COUNT 141 10x3/uL (130-400); RDW 13.4 % (11.5-14.5); WBC 11.1 10x3/uL (4.8-10.8)
--- NOTE | 2017-01-05 05:15 | NUR ---
REPOSITIONED FOR COMFORT, WILL CON'T TO MONITOR
[2017-01-05 05:27] LABS: ALBUMIN 2.6 g/dL (3.4-5.0); ANION GAP 12.1 mmol/L (8-16); BILIRUBIN - TOTAL 0.45 mg/dL (0.2-1.3); CALCIUM 7.5 mg/dL (8.5-10.1); CARBON DIOXIDE 31.9 mmol/L (21.0-32.0); CREATININE - SERUM 4.1 mg/dL (0.6-1.3); MAGNESIUM - SERUM 2.1 mg/dL (1.8-2.4); PROTEIN - SERUM 5.8 g/dL (6.4-8.2)
[2017-01-05 05:32] LABS: PHOSPHOROUS 6.1 mg/dL (2.5-4.9)
--- NOTE | 2017-01-05 07:00 | NUR ---
REPORT RECEIVED. ASSESSMENT COMPLETED. PATIENT IN SEMIFOWLERS POSITION WITH BREATHING TREATMENT IN PROGRESS. NO NEEDS VOICED.
--- NOTE | 2017-01-05 09:12 | NUR ---
NUTRITION MONITORING & EVAL CHART REVIEWED. PT FOR HD TODAY. REG PUREED DIET STARTED. RD FOLLOWING
--- NOTE | 2017-01-05 10:50 | NUR ---
DIALYSIS STARTED. PATIENT RESTING COMFORTABLY IN BED WITH NO NEEDS VOICED.
--- NOTE | 2017-01-05 13:20 | NUR ---
DIALYSIS FINISHED. PATIENT HAD 2 LITERS PULLED OFF PLUS THE 350ML FROM THE BLOOD SHE RECEIVED. PATIENT REMAINS RESTING COMFORTABLY WITH NO NEEDS VOICED.
--- NOTE | 2017-01-05 13:37 | NUR ---
Mrs. Bo had bedside hemodialysis today via her left IJ Hemosplit. Average blood flow was 400 mls/minute. Transfused one unit of prbc's on dialysis. Removed the 350 mls from the prbc's as well as 2000 mls net. Pt. stayed in atrial fib all treatment. Post vital signs were: B/P: 105/87, HR:130, Temp: 98.0, Resps:18.
--- NOTE | 2017-01-05 13:52 | NUR ---
DRESSINGS CHANGED AGAIN TO HER LEFT CHEST HEMOSPLIT AND SUBCLAVIAN SECONDARY TO HEMOSPLIT BLEEDING. STERILE TECHNIQUE USED, PATIENT AND PAINT STRIPPER ALSO WORE MASK. SURGICEL FIBRILLAR USED AROUND HEMOSPLIT SITE SECONDARY TO IT NOT CLOTTING OFF. WILL MONITOR.
--- NOTE | 2017-01-05 17:37 | NUR ---
PATIENT FED DINNER. ATE 15% AND THEN SAID SHE WAS TOO TIRED TO EAT. WILL TRY SOME PUDDING OR SOMETHING BEFORE I LEAVE.
--- NOTE | 2017-01-05 19:30 | NUR ---
ASSESSMENT COMPLETE. HR IRREGULAR; RR CLEAR BILATERALLY IN UPPER LOBES; DIMINISHED WITH RHONCHI IN LOWER LOBES. AAO X2. SPEECH SOFT. PERRLA; 3MM BRISK. CALL LIGHT IN REACH. SEE FLOW SHEET FOR DETAILS.
--- NOTE | 2017-01-05 21:21 | NUR ---
FAMILY AT BEDSIDE. UPDATE GIVEN.
--- NOTE | 2017-01-05 23:40 | NUR ---
REASSESSMENT COMPLETE. NO CHANGES FROM PREVIOUS ASSESSMENT. CALL LIGHT IN REACH. WILL CONTINUE TO MONITOR. SEE FLOW SHEET FOR DETAILS.
[2017-01-06] VITALS (10 sets, daily range): BP systolic 111–131; BP diastolic 62–94
--- NOTE | 2017-01-06 01:35 | NUR ---
PT ALERT; AWAKE. NO SIGNS OF DISTRESS. DENIES NEEDS AT THIS TIME. WILL CONTINUE TO MONITOR.
--- NOTE | 2017-01-06 02:55 | NUR ---
REASSESSMENT COMPLETE. NO CHANGES FROM PREVIOUS ASSESSMENT. CALL LIGHT IN REACH. WILL CONTINUE TO MONITOR
[2017-01-06 04:16] LABS: BASOPHILS 0.1 % (0.0-2.0); EOSINOPHILS 0.1 % (0-7); IMMATURE GRANULOCYTES 0.6 % (0-5); LYMPHOCYTES 10.9 % (15-50); MCH 30.2 pg (26.0-34.0); MCHC 33.5 g/dL (31.0-37.0); MCV 90.2 fL (80.0-100.0); MEAN PLATELET VOLUME 11.2 fL (7.4-10.4); NEUTROPHILS 77.3 % (40-80); PLATELET COUNT 152 10x3/uL (130-400); RDW 13.8 % (11.5-14.5)
[2017-01-06 04:19] LABS: HEMOGLOBIN 11.4 g/dL (12-16); RBC 3.77 10x6/uL (4.00-5.40); WBC 13.9 10x3/uL (4.8-10.8)
[2017-01-06 04:39] LABS: ALBUMIN 2.7 g/dL (3.4-5.0); ANION GAP 12.2 mmol/L (8-16); BILIRUBIN - TOTAL 0.62 mg/dL (0.2-1.3); CALCIUM 7.6 mg/dL (8.5-10.1); CARBON DIOXIDE 31.4 mmol/L (21.0-32.0); CREATININE - SERUM 3.4 mg/dL (0.6-1.3); MAGNESIUM - SERUM 2.1 mg/dL (1.8-2.4); PHOSPHOROUS 4.6 mg/dL (2.5-4.9); POTASSIUM - SERUM 3.6 mmol/L (3.5-5.1); PROTEIN - SERUM 6.1 g/dL (6.4-8.2)
--- NOTE | 2017-01-06 06:26 | NUR ---
PT AWAKE; DENIES PAIN. CALL LIGHT IN REACH. NO DISTRESS NOTED. VSS. WILL CONTINUE TO MONITOR.
--- NOTE | 2017-01-06 07:00 | NUR ---
REPORT RECEIVED, ASSESSMENT COMPLETED. PATIENT IN SEMIFOWLER POSITION WATCHING TV. NO NEEDS VOICED.
--- NOTE | 2017-01-06 08:00 | NUR ---
PATIENT REFUSED ANY BREAKFAST THIS MORNING. SHE WANTED COFFEE, BUT WHEN IT ARRIVED THICKENED IT IS SUPPOSE TO BE, SHE REFUSED. WILL CONTINUE TO TRY WITH NUTRITION.
--- NOTE | 2017-01-06 09:44 | NUR ---
NUTRITION MONITORING & EVAL CHART REVIEWED. NURSING REPORTS PT WITH POOR INTAKE PUREED DIET. THICKENED LIQUIDS. WILL CONTINUE TO PROVIDE CURRENT DIET, MONITOR PO INTAKE, PT PROGRESS. RD FOLLOWING
--- NOTE | 2017-01-06 11:50 | NUR ---
FED LUNCH. SHE ATE 25% OF THIS MEAL. THIS IS THE MOST THAT SHE HAS EATTEN FOR THIS NURSE SINCE EXTUBATION. SHE ALSO TOOK IN 120ML OF THE THICKENED TEA BEFORE SHE SAID "YOU'RE GOING TO MAKE ME FAT" AND THEN REFUSED ANY MORE.
--- NOTE | 2017-01-06 15:06 | NUR ---
REPORT CALLED TO PIERRE RICHARDSON. PATIENT WILL BE TRANSPORTED VIA BED TO ROOM 2133.
--- NOTE | 2017-01-06 15:11 | NUR ---
CORRECTION, SECONDARY TO THE CARDIZEM DRIP, PATIENT WILL BE GOING TO ROOM 2124.
--- NOTE | 2017-01-06 16:06 | NUR ---
REC'D PT FROM ICU VIA BED. FAMILY PRESENT. PT A/O X3. O2 VIA NC AT 4L. LUCERO CATH PATENT TO BSD WITH CLEAR TEA COLORED URINE IN BAG. WEARING SCD'S. SCD'S REMOVED AND SKIN ASSESSED, SKIN INTACT. BRUISING TO LEFT ABDOMEN NOTED. BOTTOM SLIGHTLY RED. CARDIZEM GTT AT 10ML/HR INFUSING TO LEFT IJ. NURSE ORIENTED PT TO CALL LIGHT. PT DENIES NEEDS AT THIS TIME. NO DISTRESS NOTED. WILL CONT. TO MONITOR.
--- NOTE | 2017-01-06 17:49 | NUR ---
PT SITTING UP IN BED WATCHING TV. NURSE OFFERED TO REPOSITION PT, PT DECLINED. PT STATES SHE IS COMFORTABLE. NO DISTRESS NOTED. CALL LIGHT WITH IN REACH. WILL CONT. TO MONITOR.
--- NOTE | 2017-01-06 19:51 | NUR ---
RESUMED CARE OF PT, LYING IN BED RESPIRATIONS EVEN AND UNLABORED ON 4LPM VIA NC. 99 CAF ON TELEMETRY. LEFT CVL INFUSING CARDIZEM @ 10 AND NS @ 10. LUCERO TO GRAVITY. CALL LIGHT INR EACH. NO NEEDS VOICED AT THIS TIME. WILL CONTINUE TO MONITOR. SEE NURSE ASSESSMENT.
[2017-01-07] VITALS: BP 128/83
--- NOTE | 2017-01-07 03:36 | NUR ---
ALPINE PATROLLER AT BEDSIDE TO OBTAIN VITALS, CALL LIGHT IN REACH. WILL CONTINUE WITH PLAN OF CARE.
[2017-01-07 04:00] VITALS: BP 143/75
[2017-01-07 06:16] LABS: BASOPHILS 0 % (0.0-2.0); EOSINOPHILS 1.5 % (0-7); HEMATOCRIT 32.4 % (36.0-48.0); HEMOGLOBIN 10.8 g/dL (12-16); LYMPHOCYTES 13.4 % (15-50); MCH 30.1 pg (26.0-34.0); MCHC 33.3 g/dL (31.0-37.0); MCV 90.3 fL (80.0-100.0); MEAN PLATELET VOLUME 10.2 fL (7.4-10.4); MONOCYTES 9.1 % (2-11); PLATELET COUNT 163 10x3/uL (130-400); RBC 3.59 10x6/uL (4.00-5.40); RDW 13.5 % (11.5-14.5); WBC 12.9 10x3/uL (4.8-10.8)
[2017-01-07 06:53] LABS: ANION GAP 13.8 mmol/L (8-16); CALCIUM 7.6 mg/dL (8.5-10.1); CARBON DIOXIDE 29.6 mmol/L (21.0-32.0); PHOSPHOROUS 4.3 mg/dL (2.5-4.9); POTASSIUM - SERUM 3.4 mmol/L (3.5-5.1)
[2017-01-07 06:55] LABS: CREATININE - SERUM 4.6 mg/dL (0.6-1.3)
--- NOTE | 2017-01-07 09:41 | NUR ---
TELEMETRY UCAF. HR 114. IV PATENT. LUCERO CATH INTACT. FAMILY AT BS. WILL CONT. PLAN OF CARE.
[2017-01-07 09:52] VITALS: BP 151/72
[2017-01-07 13:19] VITALS: BP 135/79
--- NOTE | 2017-01-07 14:50 | NUR ---
Patient Name: JOHN AGUDELO Encounter No: [id number] : 1945 Primary Insurance: MEDICARE A & B Anticipated DC Date: Planned Disposition: Inpatient Rehab External Planned Provider: [facility] INPATIENT REHAB DCP follow-up note: CM RECEIVED ORDER FOR DISCHARGE PLACEMENT. CM MET WITH PT IN ROOM TO DISCUSS DISCHARGE NEEDS AND PLANNING. CM DISCUSSED AVAILABILITY OF HOME HEALTH, REHAB SERVICES AND MEDICAL EQUIPMENT. PT REPORTS PLAN TO GO HOME AND KNOWS SHE IS NOT STRONG ENOUGH TO GO HOME NOW. CM DISCUSSED INPATIENT AND CARE HOME REHAB OPTIONS. PT BELIEVES SHE CAN PARTICIPATE IN THREE HOURS OF PROGRESSIVE THERAPY PER DAY AND WOULD LIKE TO BE CONSIDERED FOR INPATIENT REHAB AT [facility]. PT WILL CONSIDER CARE HOME IF NOT ACCEPTED FOR INPATIENT REHAB. CM PROVIDED CARE HOME LISTING. IMPORTANT MESSAGE FROM MEDICARE PROVIDED AND EXPLAINED. CM WAITING PHYSICAL THERAPY EVALUATION RESULTS AND INPATIENT REHAB PRESCREENING COMPLETION. NURYS SHAH, CASE MANAGEMENT
--- NOTE | 2017-01-07 15:16 | NUR ---
Rehab Prescreening Consult recieved and the chart has been reviewed. She looks like a good rehab candidate, but has not had any therapy yet. At this time the rehab unit does not have an available bed either. Rehab will follow her progress over the weekend and plan to re-eval on Tuesday. Ubaldo Ang has been made aware. Elvia Nolen RN Clinical Liaison, Rehab
[2017-01-07 16:38] VITALS: BP 189/99
--- NOTE | 2017-01-07 18:03 | NUR ---
DIALYSIS STARTED AT .
--- NOTE | 2017-01-07 19:00 | NUR ---
RECEIVED REPORT AND ASSUMED PT CARE FROM DAY SHIFT NURSE @ THIS TIME.
[2017-01-08 06:29] VITALS: BP 110/77
[2017-01-08 07:02] LABS: BASOPHILS 0.1 % (0.0-2.0); EOSINOPHILS 0.5 % (0-7); HEMATOCRIT 35.6 % (36.0-48.0); HEMOGLOBIN 11.8 g/dL (12-16); IMMATURE GRANULOCYTES 1.9 % (0-5); LYMPHOCYTES 12.5 % (15-50); MCH 30.2 pg (26.0-34.0); MCHC 33.1 g/dL (31.0-37.0); MEAN PLATELET VOLUME 10.7 fL (7.4-10.4); MONOCYTES 8.9 % (2-11); NEUTROPHILS 76.1 % (40-80); PLATELET COUNT 193 10x3/uL (130-400); RBC 3.91 10x6/uL (4.00-5.40); RDW 13.4 % (11.5-14.5); WBC 13.8 10x3/uL (4.8-10.8)
[2017-01-08 07:17] LABS: ANION GAP 15.3 mmol/L (8-16); CARBON DIOXIDE 29.1 mmol/L (21.0-32.0); CREATININE - SERUM 3.7 mg/dL (0.6-1.3); PHOSPHOROUS 3.7 mg/dL (2.5-4.9); POTASSIUM - SERUM 3.4 mmol/L (3.5-5.1)
--- NOTE | 2017-01-08 07:31 | NUR ---
ASSESSMENT COMPLETED. TELEMERTY SHOWS CAF AT 98. PT HAS A SORE TO HER LEFT CHEEK. 02 AT 2 L/M PER NC. LEFT CHEST SUB CLAVIAN AND LEFT CHEST HEMOSPLIT. NO NEEDS NOTED. WILL MONITOR
--- NOTE | 2017-01-08 07:41 | NUR ---
PT IS ON CARDIZEN AT 10 AND NS AT KVO INFUSING INTO LEFT SUBCLAVIAN
[2017-01-08 08:00] VITALS: BP 128/83
--- NOTE | 2017-01-08 10:36 | NUR ---
WALKED WITH PT. GAIT SLOW AND UNSTEADY. DENIES ANY NEEDS. CALL LIGHT IN REACH WITH SR UP. WILL MONITOR
[2017-01-08 12:00] VITALS: BP 140/90
--- NOTE | 2017-01-08 12:38 | NUR ---
FAMILY AT BEDSIDE. NO NEEDS VOICED. SR UP WITH CALL LIGHT IN REACH. WILL MONITOR
[2017-01-08 16:00] VITALS: BP 146/121
--- NOTE | 2017-01-08 17:34 | NUR ---
FAMILY AT BEDSIDE. TELEMERTY SHOWS CAF. LUCERO PATENT. DENIES ANY NEEDS. WILL MONITOR
--- NOTE | 2017-01-08 18:46 | NUR ---
RESTING QUIETLY NAD NOTED
--- NOTE | 2017-01-08 19:15 | NUR ---
INITIAL ROUNDS MADE. PT SITTING UP IN BED, RT IN ROOM FOR SCHEDULED UPD. LUCERO TO GRAVITY.
[2017-01-08 20:30] VITALS: BP 132/61
[2017-01-09] VITALS (10 sets, daily range): BP systolic 81–171; BP diastolic 71–99
--- NOTE | 2017-01-09 00:55 | NUR ---
TAR AND AMMONIA PUMP OPERATOR AT BEDSIDE FOR VS, NEEDS ADDRESSED. CALL LIGHT IN REACH. WILL CONT TO MONITOR.
[2017-01-09 05:16] LABS: BASOPHILS 0 % (0.0-2.0); HEMATOCRIT 36.4 % (36.0-48.0); IMMATURE GRANULOCYTES 1.1 % (0-5); LYMPHOCYTES 9.8 % (15-50); MCH 30.1 pg (26.0-34.0); MCV 91.2 fL (80.0-100.0); MEAN PLATELET VOLUME 10.4 fL (7.4-10.4); MONOCYTES 6.8 % (2-11); NEUTROPHILS 81.3 % (40-80); PLATELET COUNT 224 10x3/uL (130-400); RBC 3.99 10x6/uL (4.00-5.40); RDW 13.3 % (11.5-14.5); WBC 14.4 10x3/uL (4.8-10.8)
[2017-01-09 05:32] LABS: CARBON DIOXIDE 27.2 mmol/L (21.0-32.0); PHOSPHOROUS 3.3 mg/dL (2.5-4.9); POTASSIUM - SERUM 3.2 mmol/L (3.5-5.1); VANCOMYCIN - RANDOM 4.7 ug/mL (10.0-20.0)
[2017-01-09 05:36] LABS: CREATININE - SERUM 4.7 mg/dL (0.6-1.3)
--- NOTE | 2017-01-09 06:43 | NUR ---
RESTING WELL WITH EYES CLOSED, CONT TO MONITOR.
--- NOTE | 2017-01-09 07:24 | NUR ---
ASSESSMENT COMPLETED. DENIES ANY NEEDS. TELEMERTY SHOWS AFIB WITH A RATE OF 99. O2 AT 2 L/M PER NC. LUCERO CATH PATENT TO GRAVITY BAG. LEFT SUB CLAVIAN WITH CARDIZEN AT 10 AND NS AT 10. LEFT CHEST HEMOSPLIT. WILL MONITOR.
--- NOTE | 2017-01-09 11:01 | NUR ---
RESTING QUIETLY RESP UNLABORED SKIN W/D NAD NOTED FAMILY AT BEDSIDE
[2017-01-09 15:09] LABS: AEROBE ID Final report (())
--- NOTE | 2017-01-09 18:17 | NUR ---
HOB UP.EATING. DENIES ANY NEEDS. CALL LIGHT IN REACH, FAMILY AT BEDSIDE.
--- NOTE | 2017-01-09 19:33 | NUR ---
INITIAL ROUNDS COMPLETED. DAUGHTERS AT BEDSIDE. WILL CONITNUE TO MONITOR.
[2017-01-09 20:55] LABS: BASOPHILS 0.1 % (0.0-2.0); EOSINOPHILS 0 % (0-7); HEMOGLOBIN 12.3 g/dL (12-16); IMMATURE GRANULOCYTES 1.9 % (0-5); LYMPHOCYTES 6.4 % (15-50); MCH 30.6 pg (26.0-34.0); MCHC 33.2 g/dL (31.0-37.0); MEAN PLATELET VOLUME 10.3 fL (7.4-10.4); MONOCYTES 4.8 % (2-11); NEUTROPHILS 86.8 % (40-80); PLATELET COUNT 283 10x3/uL (130-400); RBC 4.02 10x6/uL (4.00-5.40); RDW 13.4 % (11.5-14.5); WBC 15.7 10x3/uL (4.8-10.8)
--- NOTE | 2017-01-09 21:15 | NUR ---
PT TO ICU BED 2302. PT IN UNCONTROLLED A-FIB RATE 160. PT ON 100% NRB.
[2017-01-09 21:25] LABS: ALBUMIN 3.1 g/dL (3.4-5.0); ALKALINE PHOSPHATASE 36 U/L (46-116); ALT (SGPT) 29 U/L (10-68); BILIRUBIN - TOTAL 0.74 mg/dL (0.2-1.3); CALC OSMOLALITY 304 mosm/kg (275-300); CALCIUM 8.6 mg/dL (8.5-10.1); CARBON DIOXIDE 26.6 mmol/L (21.0-32.0); CHLORIDE - SERUM 101 mmol/L (98-107); CKMB 1.7 U/L (0.0-3.6); CREATINE KINASE 88 UL (21-215); CREATININE - SERUM 5.3 mg/dL (0.6-1.3); GLUCOSE 163 mg/dL (74-106); SODIUM 140 mmol/L (136-145); UREA NITROGEN 75 mg/dL (7-18); eGFR NON AFRICAN AMERICAN 8 mL/min (90-120)
[2017-01-09 21:26] LABS: POTASSIUM - SERUM 4.9 mmol/L (3.5-5.1)
--- NOTE | 2017-01-09 21:32 | NUR ---
UPDATE CALLED TO DR. GAMBINO, NEW ORDERS RECIEVED
--- NOTE | 2017-01-09 21:34 | NUR ---
PT SWAPPED OVER TO VAPOTHERM 40LPN FIO2 100%. PT'S RESP 32
--- NOTE | 2017-01-09 21:55 | NUR ---
SPOKE AT LENGTH WITH PT FAMILY ABOUT PT STATUS, FAMILY HAS DECIDED TO MAKE PT A DNR AT THIS TIME, SALINAS REGALADO RN WITNESSED
--- NOTE | 2017-01-09 23:19 | NUR ---
CALLED DR. PERRIN. PT'S FAMILY REQUESTING PAIN MEDICATION. PT IS VERY RESTLESS AND AGGITATED. RESP 36. PULLING AT OXYGEN TUBING AND LINES. PT'S FAMILY AT BEDSIDE. DISCUSSED PLAN OF CARE WITH FAMILY. THEY REQUEST "TO KEEP HER COMFORTABLE". PT IS CURRENTLY DNR. THEY UNDERSTAND THAT THERE IS A CHANCE THAT THIS MAY MAKE HER BREATHING AND BP WORSE. THEY VOICE UNDERSTANDING. ORDERS RECEIVED BY PHONE FROM DR. PERRIN.
--- NOTE | 2017-01-09 23:27 | NUR ---
ASSESSMENT COMPLTED AT 1949 HRS. O2 TO 11 L ITERS OXIMIZER PER RT. O2 SAT 91%. PT NON- VERBAL NODDING HEAD FOR YES/NO QUESTIONS. LUNGS DIMINISHED IN BASES BILAT. LTLSC WITH CARDIZEM AT 10MG/HR AND NS AT 10CC/HR INFUSING. UCAF PER CM HR 131. LUCERO DRAINING YELLOW URINE. PT 'S LIPS PALE. LUCERO DRAINING YELLOW URINE. STAGE 2 TO BUTTOCKS NOTED. PT WILL NOT KEEP OXIMIXER ON. BRUISES NOTED TO CHEST AND NECK. RAPID RESPONSE CALLED AT 2009 HRS. O2 SAT IN LOW 80'S. O2 TO HIGH AND PT PULLED UP IN BED. BP 169/84. RESP 26 AND SHALLOW. UCAF PER CM HR 118. ABG'S DRAWN. DR PERRIN HERE AND NEW ORDERS RECEIVED. LASIX 80MG SIVP GIVEN AND KCL 10 MEQ/NS 100CC UP AT 100CC/HR. DAUGHTERS AT BEDSIDE. AT 2049 HRS PT BECAME VERY AGITTATED. ATTEMPTING TO PULL OFF NON-REBREATHER. O2 SAT TO 74%. JAVIER RT AT BEDSIDE. O2 UP FULL WITH O2 SAT SLOWLY TO 90%. UCAF HR 160 PER CM. STAT LAB DRAWN VIA LTLSC AND FSBS 139. TO ICU AT 2114 HRS.
[2017-01-10] VITALS (11 sets, daily range): BP systolic 107–134; BP diastolic 66–113
--- NOTE | 2017-01-10 00:20 | NUR ---
PT AGGITATED AND PULLING AT LINES. GASPING FOR AIR. FAMILY AT BEDSIDE. MORPHINE 2MG IV PUSH GIVEN. PT RELAXED AND RESTING COMFORTABLY.
--- NOTE | 2017-01-10 02:15 | NUR ---
PT RESTING COMFORTABLY AT THIS TIME. VSS.
[2017-01-10 04:22] LABS: BASOPHILS 0.1 % (0.0-2.0); EOSINOPHILS 0 % (0-7); HEMATOCRIT 31.7 % (36.0-48.0); HEMOGLOBIN 10.4 g/dL (12-16); IMMATURE GRANULOCYTES 0.9 % (0-5); LYMPHOCYTES 5.1 % (15-50); MCH 30.2 pg (26.0-34.0); MCHC 32.8 g/dL (31.0-37.0); MCV 92.2 fL (80.0-100.0); MONOCYTES 5.5 % (2-11); NEUTROPHILS 88.4 % (40-80); RBC 3.44 10x6/uL (4.00-5.40); RDW 13.4 % (11.5-14.5)
[2017-01-10 04:25] LABS: PLATELET COUNT 203 10x3/uL (130-400)
--- NOTE | 2017-01-10 04:30 | NUR ---
PT REPOSITIONED IN BED FOR COMFORT. VSS.
[2017-01-10 04:39] LABS: ANION GAP 13.9 mmol/L (8-16); CARBON DIOXIDE 26.9 mmol/L (21.0-32.0); CREATININE - SERUM 5.7 mg/dL (0.6-1.3); POTASSIUM - SERUM 4.8 mmol/L (3.5-5.1); VANCOMYCIN - RANDOM 20.9 ug/mL (10.0-20.0)
[2017-01-10 04:45] LABS: PHOSPHOROUS 4.9 mg/dL (2.5-4.9)
--- NOTE | 2017-01-10 07:30 | NUR ---
ASSESSMENT PER FLOWSHEET. VOICES NO CO AT TIME. RESTING COMFORTABLE.
--- NOTE | 2017-01-10 09:00 | NUR ---
DAUGHTERS AT BEDSIDE REFUSES DIALYSIS STATES JUST WANT TO KEEP HER COMFORTABLE. DR DAUGHERTY NOTIFIED. WILL DO COMFORT CARE ONLY PER FAMILY WISHES. DOES NOT WANT MOTHER STUCK WITH NEEDLES ANY MORE. OFFERRED HOSPICE BUT DENIED. WILL HAVE TO THINK ABOUT IT.
--- NOTE | 2017-01-10 10:08 | EC ---
PATIENT:JOHN AGUDELO DATE OF SERVICE: 12/30/16 SEX: F MEDICAL RECORD: [id number] DATE OF : [birth year] LOCATION:[facility] D.230 AGE OF PATIENT: 71 ADMISSION DATE: 12/30/16 REFERRING PHYSICIAN: INTERPRETING PHYSICIAN: SERA GAMBINO MD ECHOCARDIOGRAM REPORT ECHO CHARGES 4 ECHO COMPLETE CLINICAL DIAGNOSIS: ELEVATED BNP/SOB HTN OF HTN ECHOCARDIOGRAPHIC MEASUREMENTS (adult normal given) AC root (d.<3.7cm) 3.1 LV Septum d (<1.2 cm> 1.5 Valve Excursion 1.7 LV Septum (systole) 2.0 Left Atria (s.<4.0cm> 4.9 LVPW d(<1.2cm) 1.6 RV (d.<2.3cm) 3.1 LVPW (sytole) 1.8 LV diastole(<5.6CM) 5.8 MV E-F(>70mm/sec) LV systole 4.8 LVOT Diameter 1.9 MV exc.(>10mm) Est.ejection fraction (50-75%) Pericardial Effusion N DOPPLER: LVIT A 116 E 140 LA RVSP LVOT 114 AOP1/2T Asc. Ao 113 RVOT 87 RA PA 119 AV Gradient Peak 5.09 AV Mean 2.9 AV Area 3.4 MV Gradient Peak 11.23 MV Mean 5.94 MV Area COMMENTS: Collection Advisor: France BUCKLEY Prize Jacker:France Arana TAPE# PACS DATE OF SERVICE: 12/30/2016 Echocardiogram FINDINGS: 1. Left ventricular chamber size is within normal limits. Left ventricular systolic function is normal. Overall ejection fraction estimated at 50%. 2. Left atrium is significantly enlarged at 4.9 cm. Right atrium and right ventricular chamber sizes are mildly dilated. 3. Valvular structures have normal structure and motion. ECHOCARDIOGRAM REPORT [id number] JOHN AGUDELO 4. Doppler interrogation reveals moderate mitral regurgitation. No other valvular insufficiency or stenosis and pulmonary systolic pressure is preserved, estimated at 30 mmHg. 5. No evidence of pericardial effusion or left ventricular thrombus. TRANSINT:[id number] Voice Confirmation ID: [id number] DOCUMENT ID: [id number] SERA GAMBINO MD at 1004 CC: [id number] DICTATION DATE: 12/30/16 1203 RECREATION THERAPY TEACHER: 12/30/16 1741 ADM IN [facility] [address] [id number]
--- NOTE | 2017-01-10 10:35 | NUR ---
THIS CM WAS NOTIFIED OF CM CONSULT THAT WAS ENTERED ON 01/09/17 TO SET UP OPHD. CM PLACED CALL TO WILLIAM ANGEL WITH [facility] TO INFORM OF NEW OPHD PLACEMENT ORDER. WILLIAM ANGEL WILL NOTIFY CM WHEN OPHD CLINIC ARRANGEMENTS HAVE BEEN FINALIZED.
--- NOTE | 2017-01-10 10:53 | NUR ---
Rehab continues to follow this patient. Apparently she had a rapid response yesterday for A-Fib with RVR and was moved to the ICU, on a Cardizem drip. She remains a good IRF candidate when she is medically stable and can actively participate in the required therapy 3 hrs a day 5 days a week. Elvia Nolen RN Clinical Liaison, Rehab
--- NOTE | 2017-01-10 11:00 | NUR ---
NO CHANGES FROM INITIAL ASSESSMENT. VOICES NO CO AT TIME.
--- NOTE | 2017-01-10 12:09 | NUR ---
Nutrition follow-up: Diet: mechanical soft with nectar thick liquids PO intake poor at this time. HD on hold and pts family considering Hospice at this time. RDN following.
--- NOTE | 2017-01-10 13:59 | NUR ---
Patient Name: JOHN AGUDELO Encounter No: [id number] : 1945 Primary Insurance: MEDICARE A & B Anticipated DC Date: Planned Disposition: Inpatient Rehab External Planned Provider: [facility] INPATIENT REHAB DCP follow-up note: CM RECEIVED INPATIENT REHAB PRESCREEN ORDER. CM SPOKE TO PT IN ICU ROOM REGARDING INPATIENT REHAB OPTIONS. PT REPORTS SHE IS STILL WILLING FOR REHAB AT [facility] WHEN AND IF SHE IS ABLE. PT REPORTS SHE DOES NOT FEEL GOOD AT ALL TODAY. CM INFORMED PT THAT CM AND INPATIENT REHAB SCREENER WILL CONTINUE TO FOLLOW HER THOROUGH HER STAY AND DISCUSS OPTION WHEN PT IS FEELING BETTER, IS MEDICALLY STABLE AND MORE ABLE TO PARTICIPATE IN THERAPY. [facility] INPATIENT REHAB SCREENER CONTINUES TO MONITOR; WILLIAM ANGEL OF [facility] WILL NOTIFY CM WHEN OPHD CLINIC ARRANGEMENTS HAVE BEEN FINALIZED. Dk Ang, CASE MANAGEMENT
--- NOTE | 2017-01-10 15:00 | NUR ---
NO CHANGES FROM ASSESSMENT. VOICES NO CO AT TIME. BROTHER AT BEDSIDE.
--- NOTE | 2017-01-10 18:45 | NUR ---
DR ZEE AND JESSICA ELENA APN CALLED AND INSTRUCT FAMILY READY FOR HOSPICE. ORDER PLACED.
--- NOTE | 2017-01-10 19:50 | NUR ---
FAMILY IN FAMILY ROOM WITH HOSPICE.
--- NOTE | 2017-01-10 20:24 | NUR ---
SCOPOLOAMINE PATCH PLACED BEHIND LEFT EAR
--- NOTE | 2017-01-10 21:47 | NUR ---
PT DISCHARGED TO HOSPICE CARE. FAMILY AT BEDSIDE.
--- NOTE | 2017-02-24 15:50 | DS ---
PATIENT:JOHN AGUDELO :41 MEDICAL RECORD: [id number] DISCHARGE SUMMARY ADMISSION DATE: 12/30/16 DISCHARGE DATE: 01/10/17 DATE OF ADMISSION: 12/30/2016 DATE OF DISCHARGE: 01/10/2017 ADMITTING DIAGNOSES: Respiratory failure requiring intubation, tachyarrhythmia. HISTORY OF PRESENT ILLNESS: This is a 71-year-old lady brought to the Emergency Room by EMS, brought initially for palpitation, shortness of breath. She was intubated and admitted to the intensive care unit. All events, lab procedures, diagnostic testing are well documented in the records. CONSULTANTS: Dr. Villegas, pulmonology and critical care; Dr. Lance, surgery; Dr. Chowdhury, consulted to read echo; Dr. Medley, gastroenterology; Dr. Baum, nephrology and then Dr. Chowdhury as well for cardiology consult for AFib with RVR. HOSPITAL COURSE: The patient had chronic kidney disease and this admission felt progressed from acute kidney injury to end-stage renal disease. Rapid response was called for AFib with RVR. She had pneumonia during the stay and was able to get off the ventilator, transferred to the floor, but then they called the rapid for the RVR. She was transferred back to the intensive care unit. Please refer to disciplines well documented records, 01/10/2017, she was back in the intensive care unit, renal function had worsened, dialysis was put on hold and the daughters made the decision to transfer the patient to hospice. She was transferred to inpatient hospice on 01/10/2017. DIAGNOSES: Respiratory failure, tachyarrhythmia, acute kidney injury, end-stage renal disease, atrial fibrillation, pneumonia, chronic kidney disease. Greater than 30 minutes was spent on this discharge. TRANSINT:[id number] Voice Confirmation ID: [id number] DOCUMENT ID: [id number] Dictated By: JESSICA ELENA RN I have interviewed/examined the above patient and agree with these documented findings. KALEB PULLIAM DO at 1011 at 1550 CC: [id number] DICTATION DATE: 02/23/17 1639 SACK SEWER: 02/24/17 1238 DIS IN 01/10/17 [facility] [address] [place] [address]
== END 2017-01-10 22:01 | disposition hospice, inpatient (51) | DRG 870 ==
LOC: D.ER 06:34 → D.ICU 08:21 → D.M2 08:21 → D.ICU 01-09 21:15
PROVIDERS: Emergency Medicine; Family Medicine; Family Medicine Adult Medicine; Internal Medicine Nephrology; Internal Medicine Pulmonary Disease; ADMIT Emergency Medicine
PROC: 0T9B70Z Drainage of Bladder with Drainage Device, Via Natural or Artificial Opening (ICD-10-PCS; principal; 2016-12-30)
PROC: 5A1955Z Respiratory Ventilation, Greater than 96 Consecutive Hours (ICD-10-PCS; 2016-12-30)
PROC: 0BH17EZ Insertion of Endotracheal Airway into Trachea, Via Natural or Artificial Opening (ICD-10-PCS; 2016-12-30)
DX: A41.9 Sepsis, unspecified organism (principal); J96.02 Acute respiratory failure with hypercapnia; N17.0 Acute kidney failure with tubular necrosis; I50.31 Acute diastolic (congestive) heart failure; J18.9 Pneumonia, unspecified organism; E43 Unspecified severe protein-calorie malnutrition; J96.01 Acute respiratory failure with hypoxia; J44.1 Chronic obstructive pulmonary disease with (acute) exacerbation; I13.0 Hypertensive heart and chronic kidney disease with heart failure and stage 1 through stage 4 chronic kidney disease, or unspecified chronic kidney disease; Z68.1 Body mass index [BMI] 19.9 or less, adult; J44.0 Chronic obstructive pulmonary disease with (acute) lower respiratory infection; N18.3 Chronic kidney disease, stage 3 (moderate); E78.5 Hyperlipidemia, unspecified; I73.9 Peripheral vascular disease, unspecified; I25.10 Atherosclerotic heart disease of native coronary artery without angina pectoris; E03.9 Hypothyroidism, unspecified; J30.9 Allergic rhinitis, unspecified; D51.0 Vitamin B12 deficiency anemia due to intrinsic factor deficiency; E83.51 Hypocalcemia; E83.42 Hypomagnesemia; K80.20 Calculus of gallbladder without cholecystitis without obstruction; I34.0 Nonrheumatic mitral (valve) insufficiency; E87.6 Hypokalemia; D63.1 Anemia in chronic kidney disease; Z66 Do not resuscitate; N14.1 Nephropathy induced by other drugs, medicaments and biological substances; T50.8X5A Adverse effect of diagnostic agents, initial encounter; Z78.1 Physical restraint status; Z86.73 Personal history of transient ischemic attack (TIA), and cerebral infarction without residual deficits

== ENCOUNTER 2017-01-10 21:41 | Inpatient (IN) | payer OTHER ==
[~2017-01-10] VITALS: Ht 162.6 cm; Wt 51.4 kg
[~2017-01-10 21:41] MED LIST changes: +METOPROLOL TART50 MG PO; +NORVASC5 MG PO; +ROCALTROL0.5 MCG PO; +ZOCOR20 MG PO
--- NOTE | 2017-01-10 22:00 | NUR ---
PT ADMITTED INTO HOSPICE CARE.
--- NOTE | 2017-01-10 22:20 | NUR ---
PT VERY RESTLESS AND GASPING FOR AIR. MORPHINE GIVEN PER ORDER. PT HAD COMPLETE BATH AND LINEN CHANGE. LUCERO CARE GIVEN. PASTE APPLIED TO REDDNED AREAS ON BUTTOCKS. PT TURNED TO RIGHT SIDE. TOLERATED WELL. REFUSING ORAL CARE. PT SWITCHED OVER TO 10L OXIMIZER. TOLERATING WELL. SETTLED DOWN AND APPEARS MORE COMFORTABLE.
[2017-01-10 22:36] VITALS: BP 119/65; Ht 162.6 cm; Wt 51.4 kg
[2017-01-10 23:02] VITALS: BP 119/65
--- NOTE | 2017-01-10 23:56 | NUR ---
PT RESTING COMFORTABLY. RESPIRATIONS EQUAL AND UNLABORED. EYES CLOSED.
[2017-01-10 23:57] VITALS: BP 116/91
--- NOTE | 2017-01-11 01:30 | NUR ---
AIR HUNGER NOTED AT THIS TIME, MORPHINE DAIRY FARM WORKER INCREASED TO 1 MG/HR
--- NOTE | 2017-01-11 03:26 | NUR ---
PT'S FAMILY AT BEDSIDE. REPORTING THAT PT APPEARS TO HAVE DIFFICULTY BREATHING. PT TAKING DEEP IRREGULAR BREATHS. WILL GIVE ATIVAN ORDERED. CONTINUE TO MONITOR PT FOR COMFORT.
--- NOTE | 2017-01-11 05:20 | NUR ---
PT REPOSITIONED FOR COMFORT. RESTING COMFORTABLY AT THIS TIME.
--- NOTE | 2017-01-11 07:00 | NUR ---
ASSESSMENT COMPLETE PER FLOWSHEET. SLEEPING NO DISTRESS NOTED. SR UP X 2.
--- NOTE | 2017-01-11 11:20 | NUR ---
REPORT CALLED TO TAISHA TOTH.
--- NOTE | 2017-01-11 11:45 | NUR ---
RECEIVED TO ROOM 2240 VIA BED FROM ICU. FAMILY AT BEDSIDE. WILL OPEN EYES TO VERBAL STIMULATION BUT NO VERBAL RESPONSE. NO NEEDS NOTED. NO UOP AT THIS POINT. WILL MONITOR.
[2017-01-11 12:30] VITALS: BP 90/58
--- NOTE | 2017-01-11 13:30 | NUR ---
RESTING WITH EYES CLOSED. NO NEEDS NOTED.
--- NOTE | 2017-01-11 14:17 | NUR ---
HOSPICE NURSE AND SKI TOPPER HERE AT THIS TIME.
--- NOTE | 2017-01-11 16:26 | NUR ---
REPOSITIONED IN BED FOR COMFORT. SOME MOANING WITH MOVEMENT BUT OTHERWISE NO RESPONSE.
--- NOTE | 2017-01-11 18:54 | NUR ---
FAMILY REMAINS AT BEDSIDE. NO CHANGES NOTED AT THIS TIME. NO UOP IN LUCERO.
[2017-01-11 20:00] VITALS: BP 111/73
--- NOTE | 2017-01-11 21:10 | NUR ---
PATIENT FAMILY MEMBER STATES PATIENT HAVING DIFFICULT TIME BREATHING. PATIENT ASSESSED. ATIVAN GIVEN ORDERED TO HELP PATIENT REST MORE COMFORTABLY. NO OTHER SIGNS OF DISTRESS NOTED. FAMILY APPRECIATIVE. BED LOW. CALL LIGHT WITH FAMILY. WILL MONITOR.
--- NOTE | 2017-01-12 02:00 | NUR ---
PT IN BED WITH MINIMAL DISTRESS NOTED. RESPIRATIONS SHALLOW. COMFORT MEASURES BEING PROVIDED. SIDE RAILS X 2. BED LOW. CALL LIGHT IN REACH.
--- NOTE | 2017-01-12 07:35 | NUR ---
INTRODUCED SELF TO PATIENT AND PATIENT'S DAUGHTERS. PATIENT IS NOT RESPONDING VERBALLY. BUT DOES RESPOND WITH FLEXION TO TOUCH. SPOKE WITH DAUGHTER AT BEDSIDE ABOUT TURNING THE PATIENT FOR THE PURPOSE OF SKIN INTEGRITY. SHE VERBALIZED UNDERSTANDING AND STATED "DO WHATEVER YOU NEED TO DO. I JUST DO NOT WANT HER TO HURT BECAUSE WHEN THEY REPOSITIONED HER YESTERDAY, IT CAUSED HER A LOT OF PAIN. BUT THEN AFTERWARDS SHE WAS FINE." I STATED "DO YOU WANT ME TO GIVE HER SOME ATIVAN BEFORE WE TURN HER?" DAUGHTER STATED "YES. THAT WOULD BE GREAT."
--- NOTE | 2017-01-12 07:50 | NUR ---
PATIENT IS POSITIONED ON HER LEFT SIDE. WITH ASSIST FROM JANEY JENNINGS. TURNED PATIENT TO ASSESS HER BUTTOM, BUTTOM IS PURPLE AND HAS A STAGE TWO PRESSURE ULCER THE SIZE OF A PENCIL ERASER TO HER LEFT BUTTOCKS. APPLIED A MEPILEX SACRAL DRESSING. TURNED PATIENT TO HER RIGHT SIDE. POSITIONED WITH A PILLOW BEHIND HER BACK AND BUTTOCKS. AND A PILLOW UNDER HER RIGHT ARM. POSITIONED HEAD WITH 2 PILLOWS TO ASSIST PATIENT KEEPING HER HEAD STRAIGHT PER DAUGHTER'S REQUEST. PATIENT BITES WHEN ORAL CARE SWAB IS PUT IN HER MOUTH. IMPLEMENTED ORAL CARE WELL ABLE TO WITH PATIENT TRYING TO BITE THE SWAB. MOUTH IS VERY DRY WITH SKIN PEELING OFF. WAS ABLE TO CLEAN OUT A LOT OF THE SKIN. PATIENT HAS AN OXYMIZER IN HER MOUTH, AT A RATE OF 12L/MIN. PATIENT IS A MOUTH BREATHER. PATIENT'S DAUGHTER'S DENY FURTHER NEEDS.
--- NOTE | 2017-01-12 08:14 | NUR ---
PATIENT'S BREATHING IS LABORED AND PATIENT IS GRUNTING. DAUGHTER CAME OUT TO THE DESK AND TOLD ME AND ASKED IF THERE IS ANYTHING THAT I CAN DO. EXPLAINED TO HER THAT I CAN GIVE HER A BOLUS OF MORPHINE. EXPLAINED TO BOTH DAUGHTERS. THEY BOTH AGREED. ADMINISTERED BOLUS, 2MG OF MORPHINE.
[2017-01-12 08:40] VITALS: BP 200/69
--- NOTE | 2017-01-12 11:21 | NUR ---
FAMILY PUSHED THE CALL LIGHT. ENTERED ROOM. FAMILY IS HOLDING HANDS AROUND PATIENT. FAMILY STATED "WE THOUGHT WE LOST HER FOR A MINUTE. SHE OPENED HER EYES REALLY WIDE AND COUGHED THEN STOPPED BREATHING. WE GATHERED AROUND HER AND STARTED RUBBING HER CHEST AND SHE STARTED BREATHING AGAIN."
--- NOTE | 2017-01-12 11:24 | NUR ---
PATIENT IS VERY PALE. RESPIRATIONS ARE LABORED.
--- NOTE | 2017-01-12 11:37 | NUR ---
BREATHING LABORED, FAMILY REQUESTED INCREASE MORPHINE. EXPLAINED THAT I WILL GIVE A BOLUS THEN CALL .
--- NOTE | 2017-01-12 12:12 | NUR ---
INCREASED MORPHINE RATE TO 1.5MG/HR CONTINUOUS ORDERED. FAMILY IN ROOM.
--- NOTE | 2017-01-12 15:58 | NUR ---
THE CHAPLEN FROM HOSPICE CAME TO DESK AND STATED THE PATIENT JUST . HE STATED "I HAVE ALREADY CALLED OUR OFFICE" I SAID "SO THE NURSE HAS BEEN NOTIFIED?" HE STATED "YES." CALLING .
== END 2017-01-12 18:00 | DRG 951 ==
LOC: D.M2 21:41 → D.MS 22:01 → D.ICU 22:01 → D.MS 01-11 11:19
PROVIDERS: ADMIT Legal Medicine
DX: Z51.5 Encounter for palliative care (principal)